=== PATIENT | male | born 1955 | race Hispanic/Latino ===

== ENCOUNTER 2020-08-03 15:17 | Inpatient (IN) | payer MEDICARE ==
[~2020-08-03] VITALS: Ht 172.7 cm; Wt 108.9 kg
[2020-08-03] MEDS ORDERED: ZOSYN 3.375GM+NS 50ML 50 ML IV ONE (16:09)
[2020-08-03] MEDS ORDERED: 0.9%NACL 1000ML 1,000 ML IV ONE (16:09)
[2020-08-03] MEDS ORDERED: 0.9% NACL 500ML IV.SOLN 500 ML IV ONE (16:10)
[2020-08-03 16:46] LABS: BASOPHILS % (AUTO) 0.1 % (0.0-5.0); HEMATOCRIT 42.7 % (42-54); LYMPHOCYTES % (AUTO) 13.2 % (21.0-51.0); MEAN CORPUSCULAR HEMOGLOBIN 28.2 pg (27.0-33.0); MEAN CORPUSCULAR VOLUME 82.9 fL (79-99); MONOCYTES % (AUTO) 4.6 % (3.0-13.0); NEUTROPHILS % (AUTO) 81.4 % (40.0-77.0); PLATELET COUNT (AUTO) 312 K/uL (130-400); RED BLOOD CELL COUNT(AUTO) 5.15 MIL/uL (4.50-6.20); RED CELL DISTRIBUTION WIDTH 13.2 % (11.0-15.5)
[2020-08-03 16:58] LABS: CREATININE 1.2 mg/dL (0.5-1.5); POTASSIUM 4.9 mmol/L (3.5-5.1)
[2020-08-03 17:03] LABS: ALBUMIN 2.9 g/dL (3.5-5.0); BILIRUBIN,TOTAL 0.8 mg/dL (0.2-1.0)
[2020-08-03] MEDS ORDERED: 0.9%NACL 1000ML 1,000 ML IV SCH (17:15)
[2020-08-04] MEDS: HYDROXYZINE 25 MG TABLET PO SCH
[2020-08-04] MEDS ORDERED: ONDANSETRON 4MG INJ IV PRN (00:45)
[2020-08-04] MEDS ORDERED: ACETAMINOPHEN 325 MG TAB PO PRN ×2 (00:45)
[2020-08-04] MEDS ORDERED: GLUCAGON 1MG KIT 1 MG ML IM PRN (00:45)
[2020-08-04] MEDS ORDERED: DOXYCYCLINE 100MG+NS 250ML IV SCH (00:45)
[2020-08-04] MEDS ORDERED: CEFTRIAXONE 1G VIAL IVP SCH (00:45)
[2020-08-04] MEDS ORDERED: ALBUTEROL INHALER 90MCG/INH IH PRN (00:45)
[2020-08-04] MEDS ORDERED: ERGOCALCIFEROL (VITAMIN D2) 50,000 UNIT CAPSULE PO ONE (00:45)
[2020-08-04] MEDS ORDERED: DEXTROSE 50%-WATER 50 ML DISP.SYRIN IV PRN (00:45)
[2020-08-04] MEDS ORDERED: GUAIFENESIN-DM 200/20 MG 10 ML PO PRN (00:45)
[2020-08-04] MEDS ORDERED: DEXAMETHASONE SOD PHOSPHATE 4 MG/ML 1ML VIAL IVP SCH (00:45)
[2020-08-04] MEDS ORDERED: ERGOCALCIFEROL (VITAMIN D2) 50,000 UNIT CAPSULE ONE (01:20)
[2020-08-04] MEDS ORDERED: DEXAMETHASONE SOD PHOSPHATE 4 MG/ML 1ML VIAL ONE (01:21)
[2020-08-04] MEDS ORDERED: HYDROXYZINE 25 MG TABLET ONE (01:21)
[2020-08-04] MEDS ORDERED: DOXYCYCLINE 100MG+NS 250ML 250 ML IV ONE ×2 (01:24→17:07)
[2020-08-04] MEDS ORDERED: CEFTRIAXONE 1G VIAL ONE ×2 (01:31→17:07)
[2020-08-04 04:53] LABS: BASOPHILS % (AUTO) 0.1 % (0.0-5.0); HEMATOCRIT 41.7 % (42-54); MEAN CORPUSCULAR HEMOGLOBIN 27.7 pg (27.0-33.0); MEAN CORPUSCULAR HGB CONC 33.1 g/dL (32.0-36.0); MEAN CORPUSCULAR VOLUME 83.6 fL (79-99); MONOCYTES % (AUTO) 2.3 % (3.0-13.0); NEUTROPHILS % (AUTO) 88.4 % (40.0-77.0); PLATELET COUNT (AUTO) 282 K/uL (130-400); RED BLOOD CELL COUNT(AUTO) 4.99 MIL/uL (4.50-6.20); RED CELL DISTRIBUTION WIDTH 13.2 % (11.0-15.5)
[2020-08-04] MEDS ORDERED: ACETYLCYSTEINE 600 MG CAPSULE ONE ×3 (07:58→21:09)
[2020-08-04] MEDS ORDERED: ASCORBIC ACID 500 MG TAB ONE ×2 (07:58→20:50)
[2020-08-04] MEDS ORDERED: ENOXAPARIN SODIUM 40 MG/0.4 ML SYRINGE SQ ONE (07:59)
[2020-08-04] MEDS ORDERED: ZINC SULFATE 220 CAPSULE ONE (07:59)
[2020-08-04] MEDS ORDERED: ENOXAPARIN SODIUM 40 MG/0.4 ML SYRINGE SQ SCH ×2 (09:00→21:00)
[2020-08-04] MEDS ORDERED: ACETYLCYSTEINE 600 MG CAPSULE PO SCH (09:00)
[2020-08-04] MEDS ORDERED: ASCORBIC ACID 500 MG TAB PO SCH (09:00)
[2020-08-04 09:21] LABS: CREATININE 1.2 mg/dL (0.5-1.5); POTASSIUM 4.4 mmol/L (3.5-5.1)
[2020-08-04 10:05] LABS: ALBUMIN 2.6 g/dL (3.5-5.0); BILIRUBIN,TOTAL 0.5 mg/dL (0.2-1.0); TOTAL PROTEIN, SERUM 7.5 g/dL (6.0-8.3)
[2020-08-04 10:09] LABS: FERRITIN 2078 ng/mL (30-400)
[2020-08-04 10:14] LABS: CRP QUANTITATIVE 297.8 mg/L (0.00-9.0)
[2020-08-04] MEDS ORDERED: PHARMACY COMMUNICATION MISC SCH (10:45)
[2020-08-04 12:43] LABS: ABG BASE EXCESS -3.2 mmol/L (-2.0-3.0); ABG HCO3 21.6 mmol/L (21.0-28.0); ABG OXYGEN SATURATION 93.9 % (95.0-99.0); ABG PCO2 38 mmHg (35-48)
[2020-08-04] MEDS ORDERED: DEXAMETHASONE SOD PHOSPHATE 10MG/ML 1ML VIAL ONE (13:01)
[2020-08-04] MEDS ORDERED: DOXYCYCLINE 100MG+NS 250ML 250 ML IV SCH (14:00)
[2020-08-04] MEDS ORDERED: COMPOUND IV REFRIGERATED 1 EACH IVSOLN MISC PRN (15:00)
[2020-08-04] MEDS ORDERED: REMDESIVIR (EUA) 520 200 MG in 0.9% NACL 250ML 250 ML IV ONE (15:00)
[2020-08-04] MEDS: INSULIN HUMULIN R 100 UNIT/ML 3ML SQ SCH ×2 (16:30→21:00)
[2020-08-04] MEDS ORDERED: INSULIN HUMULIN R 100 UNIT/ML 3ML ONE ×2 (17:09→21:01)
[2020-08-04] MEDS ORDERED: FAMOTIDINE 20MG VIAL IV SCH (21:00)
[2020-08-04] MEDS ORDERED: ENOXAPARIN SODIUM 120 MG/0.8ML SQ SCH (21:00)
[2020-08-05] MEDS ORDERED: DEXAMETHASONE SOD PHOSPHATE 10MG/ML 1ML VIAL ONE ×2 (00:16→12:18)
[2020-08-05] MEDS ORDERED: CEFTRIAXONE 1G VIAL ONE ×3 (00:17→23:47)
[2020-08-05] MEDS ORDERED: DOXYCYCLINE 100MG+NS 250ML 250 ML IV ONE ×2 (00:17→14:20)
[2020-08-05] MEDS ORDERED: 0.9%NACL 50ML 50 ML IV ONE (00:17)
[2020-08-05 03:58] LABS: BASOPHILS % (AUTO) 0.1 % (0.0-5.0); HEMATOCRIT 41.9 % (42-54); LYMPHOCYTES % (AUTO) 8.4 % (21.0-51.0); MEAN CORPUSCULAR HEMOGLOBIN 27.7 pg (27.0-33.0); MEAN CORPUSCULAR HGB CONC 32.7 g/dL (32.0-36.0); MEAN CORPUSCULAR VOLUME 84.8 fL (79-99); MONOCYTES % (AUTO) 3.1 % (3.0-13.0); NEUTROPHILS % (AUTO) 87.5 % (40.0-77.0); PLATELET COUNT (AUTO) 319 K/uL (130-400); RED BLOOD CELL COUNT(AUTO) 4.94 MIL/uL (4.50-6.20); RED CELL DISTRIBUTION WIDTH 13.6 % (11.0-15.5); WHITE BLOOD COUNT (AUTO) 9.6 K/uL (4.8-10.8)
[2020-08-05 04:12] LABS: ABG BASE EXCESS -1.9 mmol/L (-2.0-3.0); ABG HCO3 22.7 mmol/L (21.0-28.0); ABG OXYGEN SATURATION 90.3 % (95.0-99.0); ABG PCO2 39 mmHg (35-48)
[2020-08-05 04:14] LABS: ALBUMIN 2.5 g/dL (3.5-5.0); BILIRUBIN,TOTAL 0.4 mg/dL (0.2-1.0); CREATININE 0.9 mg/dL (0.5-1.5); POTASSIUM 4.5 mmol/L (3.5-5.1); TOTAL PROTEIN, SERUM 6.8 g/dL (6.0-8.3)
[2020-08-05 04:23] LABS: CRP QUANTITATIVE 252.9 mg/L (0.00-9.0)
[2020-08-05] MEDS: INSULIN HUMULIN R 100 UNIT/ML 3ML SQ SCH ×4 (07:30→21:00)
[2020-08-05] MEDS: ZINC SULFATE 220 CAPSULE PO SCH (09:00)
[2020-08-05] MEDS ORDERED: ASCORBIC ACID 500 MG TAB ONE ×2 (09:07→23:47)
[2020-08-05] MEDS ORDERED: ENOXAPARIN SODIUM 120 MG/0.8ML SQ ONE (09:08)
[2020-08-05] MEDS ORDERED: ZINC SULFATE 220 CAPSULE ONE (09:08)
[2020-08-05] MEDS ORDERED: FAMOTIDINE 20MG VIAL IV ONE (09:09)
[2020-08-05] MEDS ORDERED: INSULIN HUMULIN R 100 UNIT/ML 3ML ONE ×5 (09:10→23:48)
[2020-08-05] MEDS: DEXAMETHASONE SOD PHOSPHATE 4 MG/ML 1ML VIAL IVP SCH (12:45)
[2020-08-05] MEDS ORDERED: INSULIN GLARGINE 100 UNITS/ML 10 ML VIAL SQ SCH (21:00)
[2020-08-05] MEDS: ASCORBIC ACID 500 MG TAB PO SCH (21:00)
[2020-08-05] MEDS ORDERED: DEXAMETHASONE SOD PHOSPHATE 4 MG/ML 1ML VIAL ONE (23:47)
[2020-08-05] MEDS ORDERED: HYDROXYZINE 25 MG TABLET ONE (23:47)
[2020-08-06] MEDS: DEXAMETHASONE SOD PHOSPHATE 4 MG/ML 1ML VIAL IVP SCH ×2 (00:45→12:45)
[2020-08-06] MEDS ORDERED: DOXYCYCLINE 100MG+NS 250ML 250 ML IV ONE ×2 (01:52→13:08)
[2020-08-06 06:02] LABS: BASOPHILS % (AUTO) 0.1 % (0.0-5.0); HEMATOCRIT 41.3 % (42-54); MEAN CORPUSCULAR HEMOGLOBIN 27.9 pg (27.0-33.0); MEAN CORPUSCULAR HGB CONC 33.2 g/dL (32.0-36.0); MEAN CORPUSCULAR VOLUME 84.1 fL (79-99); MONOCYTES % (AUTO) 4.2 % (3.0-13.0); NEUTROPHILS % (AUTO) 87.5 % (40.0-77.0); PLATELET COUNT (AUTO) 357 K/uL (130-400); RED BLOOD CELL COUNT(AUTO) 4.91 MIL/uL (4.50-6.20); RED CELL DISTRIBUTION WIDTH 13.4 % (11.0-15.5); WHITE BLOOD COUNT (AUTO) 8.8 K/uL (4.8-10.8)
[2020-08-06 06:28] LABS: ALBUMIN 2.2 g/dL (3.5-5.0); BILIRUBIN,TOTAL 0.3 mg/dL (0.2-1.0); CREATININE 0.9 mg/dL (0.5-1.5); CRP QUANTITATIVE 101.7 mg/L (0.00-9.0); POTASSIUM 4.3 mmol/L (3.5-5.1); TOTAL PROTEIN, SERUM 6.9 g/dL (6.0-8.3)
[2020-08-06] MEDS ORDERED: INSULIN HUMULIN R 100 UNIT/ML 3ML SQ SCH (07:30)
[2020-08-06] MEDS: INSULIN HUMULIN R 100 UNIT/ML 3ML SQ SCH ×6 (07:30→21:00)
[2020-08-06] MEDS ORDERED: ASCORBIC ACID 500 MG TAB ONE (08:07)
[2020-08-06] MEDS ORDERED: ZINC SULFATE 220 CAPSULE ONE (08:07)
[2020-08-06] MEDS ORDERED: ENOXAPARIN SODIUM 120 MG/0.8ML SQ ONE (08:08)
[2020-08-06] MEDS ORDERED: INSULIN HUMULIN R 100 UNIT/ML 3ML ONE ×4 (08:09→21:28)
[2020-08-06] MEDS ORDERED: FAMOTIDINE 20MG VIAL IV ONE ×2 (08:09→21:18)
[2020-08-06] MEDS: ASCORBIC ACID 500 MG TAB PO SCH ×2 (09:00→21:00)
[2020-08-06] MEDS: ZINC SULFATE 220 CAPSULE PO SCH (09:00)
[2020-08-06] MEDS ORDERED: DEXAMETHASONE SOD PHOSPHATE 10MG/ML 1ML VIAL ONE (11:36)
[2020-08-06] MEDS ORDERED: CEFTRIAXONE 1G VIAL ONE (11:37)
[2020-08-06] MEDS: INSULIN GLARGINE 100 UNITS/ML 10 ML VIAL SQ SCH (21:00)
[2020-08-06] MEDS: ENOXAPARIN SODIUM 60 MG/0.6 ML SQ SCH (21:00)
[2020-08-06] MEDS ORDERED: ENOXAPARIN SODIUM 60 MG/0.6 ML SQ ONE (21:17)
[2020-08-07] VITALS (24 sets, daily range): BP systolic 119–167; BP diastolic 63–101
[2020-08-07] MEDS: INSULIN GLARGINE 100 UNITS/ML 10 ML VIAL SQ SCH ×2 (00:02→20:42)
[2020-08-07] MEDS: HYDROXYZINE 25 MG TABLET PO SCH ×2 (00:45)
[2020-08-07] MEDS: DEXAMETHASONE SOD PHOSPHATE 4 MG/ML 1ML VIAL IVP SCH ×3 (02:25→13:19)
[2020-08-07 04:34] LABS: ALBUMIN 2.3 g/dL (3.5-5.0); BILIRUBIN,TOTAL 0.3 mg/dL (0.2-1.0); CRP QUANTITATIVE 61.8 mg/L (0.00-9.0); POTASSIUM 3.8 mmol/L (3.5-5.1)
[2020-08-07] MEDS: PHARMACY COMMUNICATION MISC SCH ×2 (06:00)
[2020-08-07] MEDS: PANTOPRAZOLE 40 MG TAB DR PO SCH (09:16)
[2020-08-07] MEDS: ASCORBIC ACID 500 MG TAB PO SCH ×3 (09:16→21:27)
[2020-08-07] MEDS: ZINC SULFATE 220 CAPSULE PO SCH ×2 (09:16)
[2020-08-07] MEDS: ENOXAPARIN SODIUM 60 MG/0.6 ML SQ SCH ×2 (09:17→20:43)
[2020-08-07] MEDS: INSULIN HUMULIN R 100 UNIT/ML 3ML SQ SCH ×7 (09:53→20:46)
[2020-08-07] MEDS: REMDESIVIR (EUA) 520 100 MG in 0.9% NACL 250ML 250 ML IV SCH ×3 (16:30)
[2020-08-07] MEDS ORDERED: HYDRALAZINE 20MG/ML VIAL IV ONE (18:30)
[2020-08-08] VITALS (25 sets, daily range): BP systolic 109–162; BP diastolic 59–95
[2020-08-08] MEDS: HYDROXYZINE 25 MG TABLET PO SCH (00:01)
[2020-08-08] MEDS: DEXAMETHASONE SOD PHOSPHATE 4 MG/ML 1ML VIAL IVP SCH ×2 (00:01→12:40)
[2020-08-08] MEDS: INSULIN HUMULIN R 100 UNIT/ML 3ML SQ SCH ×4 (05:23→21:01)
[2020-08-08] MEDS: PHARMACY COMMUNICATION MISC SCH (06:00)
[2020-08-08 06:42] LABS: MAGNESIUM 2.3 mg/dL (1.80-2.40)
[2020-08-08 07:33] LABS: HEMATOCRIT 41.9 % (42-54); MEAN CORPUSCULAR HEMOGLOBIN 27.6 pg (27.0-33.0); MEAN CORPUSCULAR VOLUME 86.4 fL (79-99); RED BLOOD CELL COUNT(AUTO) 4.85 MIL/uL (4.50-6.20)
[2020-08-08] MEDS ORDERED: POTASSIUM CHLORIDE 20MEQ/100ML 100 ML IV PRN (07:45)
[2020-08-08] MEDS ORDERED: LIDOCAINE HCL-MPF 1% 2ML VIAL IV PRN (07:45)
[2020-08-08] MEDS ORDERED: POTASSIUM CHLORIDE 10% ELIXIR 20 MEQ/15 ML UDCUP PO PRN (07:45)
[2020-08-08 07:47] LABS: ALBUMIN 2.2 g/dL (3.5-5.0); BILIRUBIN,TOTAL 0.3 mg/dL (0.2-1.0); CREATININE 0.9 mg/dL (0.5-1.5); POTASSIUM 4.8 mmol/L (3.5-5.1)
[2020-08-08] MEDS: ENOXAPARIN SODIUM 60 MG/0.6 ML SQ SCH ×2 (08:46→20:59)
[2020-08-08] MEDS: PANTOPRAZOLE 40 MG TAB DR PO SCH (08:46)
[2020-08-08] MEDS: ZINC SULFATE 220 CAPSULE PO SCH (08:46)
[2020-08-08] MEDS: ASCORBIC ACID 500 MG TAB PO SCH ×2 (08:46→20:59)
[2020-08-08] MEDS: REMDESIVIR (EUA) 520 100 MG in 0.9% NACL 250ML 250 ML IV SCH (16:02)
[2020-08-08] MEDS: INSULIN GLARGINE 100 UNITS/ML 10 ML VIAL SQ SCH (21:02)
[2020-08-09] VITALS (24 sets, daily range): BP systolic 109–161; BP diastolic 64–95
[2020-08-09] MEDS: HYDROXYZINE 25 MG TABLET PO SCH (00:45)
[2020-08-09] MEDS: INSULIN HUMULIN R 100 UNIT/ML 3ML SQ SCH ×4 (06:01→20:24)
[2020-08-09] MEDS: SENNOSIDES 8.6 MG TABLET PO SCH (08:40)
[2020-08-09] MEDS: ZINC SULFATE 220 CAPSULE PO SCH (08:40)
[2020-08-09] MEDS: PANTOPRAZOLE 40 MG TAB DR PO SCH (08:40)
[2020-08-09] MEDS: ASCORBIC ACID 500 MG TAB PO SCH ×2 (08:40→20:21)
[2020-08-09] MEDS: DOCUSATE SODIUM 100 MG CAP PO SCH (08:40)
[2020-08-09] MEDS: ENOXAPARIN SODIUM 60 MG/0.6 ML SQ SCH ×2 (08:42→20:21)
[2020-08-09] MEDS: DEXAMETHASONE SOD PHOSPHATE 4 MG/ML 1ML VIAL IVP SCH (08:42)
[2020-08-09] MEDS: INSULIN GLARGINE 100 UNITS/ML 10 ML VIAL SQ SCH (20:24)
[2020-08-10] VITALS (17 sets, daily range): BP systolic 113–142; BP diastolic 69–84
[2020-08-10] MEDS: HYDROXYZINE 25 MG TABLET PO SCH ×2 (00:45→23:59)
[2020-08-10 04:14] LABS: BASOPHILS % (AUTO) 0.1 % (0.0-5.0); EOSINOPHILS % (AUTO) 0.6 % (0.0-8.0); HEMATOCRIT 44.2 % (42-54); LYMPHOCYTES % (AUTO) 11.6 % (21.0-51.0); MEAN CORPUSCULAR HEMOGLOBIN 27.4 pg (27.0-33.0); MEAN CORPUSCULAR HGB CONC 32.1 g/dL (32.0-36.0); MEAN CORPUSCULAR VOLUME 85.3 fL (79-99); MONOCYTES % (AUTO) 2.4 % (3.0-13.0); NEUTROPHILS % (AUTO) 83.2 % (40.0-77.0); PLATELET COUNT (AUTO) 324 K/uL (130-400); RED BLOOD CELL COUNT(AUTO) 5.18 MIL/uL (4.50-6.20); RED CELL DISTRIBUTION WIDTH 13.8 % (11.0-15.5); WHITE BLOOD COUNT (AUTO) 8.3 K/uL (4.8-10.8)
[2020-08-10 04:44] LABS: ALBUMIN 2.2 g/dL (3.5-5.0); BILIRUBIN,TOTAL 0.5 mg/dL (0.2-1.0); CREATININE 0.8 mg/dL (0.5-1.5); MAGNESIUM 2.6 mg/dL (1.80-2.40); TOTAL PROTEIN, SERUM 6.7 g/dL (6.0-8.3)
[2020-08-10] MEDS: INSULIN HUMULIN R 100 UNIT/ML 3ML SQ SCH ×4 (05:22→20:31)
[2020-08-10] MEDS: DEXAMETHASONE SOD PHOSPHATE 4 MG/ML 1ML VIAL IVP SCH (09:07)
[2020-08-10] MEDS: ENOXAPARIN SODIUM 60 MG/0.6 ML SQ SCH ×2 (09:07→20:29)
[2020-08-10] MEDS: ZINC SULFATE 220 CAPSULE PO SCH (09:07)
[2020-08-10] MEDS: DOCUSATE SODIUM 100 MG CAP PO SCH (09:07)
[2020-08-10] MEDS: PANTOPRAZOLE 40 MG TAB DR PO SCH (09:08)
[2020-08-10] MEDS: ASCORBIC ACID 500 MG TAB PO SCH ×2 (09:08→20:29)
[2020-08-10] MEDS: SENNOSIDES 8.6 MG TABLET PO SCH (09:08)
[2020-08-10] MEDS: INSULIN GLARGINE 100 UNITS/ML 10 ML VIAL SQ SCH (20:31)
[2020-08-11] VITALS (18 sets, daily range): BP systolic 115–156; BP diastolic 65–93
[2020-08-11 04:13] LABS: BASOPHILS % (AUTO) 0.1 % (0.0-5.0); EOSINOPHILS % (AUTO) 0.1 % (0.0-8.0); HEMATOCRIT 43.7 % (42-54); LYMPHOCYTES % (AUTO) 8.4 % (21.0-51.0); MEAN CORPUSCULAR HEMOGLOBIN 27.5 pg (27.0-33.0); MEAN CORPUSCULAR VOLUME 85.9 fL (79-99); MONOCYTES % (AUTO) 2.5 % (3.0-13.0); NEUTROPHILS % (AUTO) 87.1 % (40.0-77.0); PLATELET COUNT (AUTO) 302 K/uL (130-400); RED BLOOD CELL COUNT(AUTO) 5.09 MIL/uL (4.50-6.20); RED CELL DISTRIBUTION WIDTH 13.5 % (11.0-15.5); WHITE BLOOD COUNT (AUTO) 8.3 K/uL (4.8-10.8)
[2020-08-11 04:22] LABS: ALBUMIN 2.1 g/dL (3.5-5.0); BILIRUBIN,TOTAL 0.5 mg/dL (0.2-1.0); CREATININE 0.8 mg/dL (0.5-1.5); POTASSIUM 4.1 mmol/L (3.5-5.1); TOTAL PROTEIN, SERUM 6.6 g/dL (6.0-8.3)
[2020-08-11 04:38] LABS: CRP QUANTITATIVE 211.1 mg/L (0.00-9.0)
[2020-08-11] MEDS: INSULIN HUMULIN R 100 UNIT/ML 3ML SQ SCH ×4 (06:08→20:29)
[2020-08-11] MEDS: DEXAMETHASONE SOD PHOSPHATE 4 MG/ML 1ML VIAL IVP SCH (09:54)
[2020-08-11] MEDS: ZINC SULFATE 220 CAPSULE PO SCH (09:55)
[2020-08-11] MEDS: DOCUSATE SODIUM 100 MG CAP PO SCH (09:57)
[2020-08-11] MEDS: SENNOSIDES 8.6 MG TABLET PO SCH (09:57)
[2020-08-11] MEDS: ASCORBIC ACID 500 MG TAB PO SCH ×2 (09:57→20:25)
[2020-08-11] MEDS: PANTOPRAZOLE 40 MG TAB DR PO SCH (09:57)
[2020-08-11] MEDS: ENOXAPARIN SODIUM 60 MG/0.6 ML SQ SCH ×2 (09:58→20:25)
[2020-08-11] MEDS: INSULIN GLARGINE 100 UNITS/ML 10 ML VIAL SQ SCH (20:27)
[2020-08-12] VITALS (18 sets, daily range): BP systolic 77–139; BP diastolic 35–86
[2020-08-12] MEDS: HYDROXYZINE 25 MG TABLET PO SCH ×2 (00:07→20:41)
[2020-08-12] MEDS: INSULIN HUMULIN R 100 UNIT/ML 3ML SQ SCH ×4 (05:45→20:40)
[2020-08-12 06:02] LABS: BASOPHILS % (AUTO) 0.1 % (0.0-5.0); EOSINOPHILS % (AUTO) 0.1 % (0.0-8.0); MEAN CORPUSCULAR HEMOGLOBIN 27.3 pg (27.0-33.0); MEAN CORPUSCULAR VOLUME 85.3 fL (79-99); MONOCYTES % (AUTO) 3.6 % (3.0-13.0); NEUTROPHILS % (AUTO) 84.8 % (40.0-77.0); PLATELET COUNT (AUTO) 294 K/uL (130-400); RED BLOOD CELL COUNT(AUTO) 5.16 MIL/uL (4.50-6.20); RED CELL DISTRIBUTION WIDTH 13.6 % (11.0-15.5)
[2020-08-12 06:22] LABS: ALBUMIN 2.1 g/dL (3.5-5.0); BILIRUBIN,TOTAL 0.5 mg/dL (0.2-1.0); CREATININE 0.8 mg/dL (0.5-1.5); CRP QUANTITATIVE 127.4 mg/L (0.00-9.0); TOTAL PROTEIN, SERUM 6.7 g/dL (6.0-8.3)
[2020-08-12] MEDS: ENOXAPARIN SODIUM 60 MG/0.6 ML SQ SCH ×2 (10:11→20:38)
[2020-08-12] MEDS: DEXAMETHASONE SOD PHOSPHATE 4 MG/ML 1ML VIAL IVP SCH ×2 (10:12→20:37)
[2020-08-12] MEDS: ZINC SULFATE 220 CAPSULE PO SCH (10:12)
[2020-08-12] MEDS: ASCORBIC ACID 500 MG TAB PO SCH ×2 (10:12→20:37)
[2020-08-12] MEDS: DOCUSATE SODIUM 100 MG CAP PO SCH (10:12)
[2020-08-12] MEDS: PANTOPRAZOLE 40 MG TAB DR PO SCH (10:12)
[2020-08-12] MEDS: SENNOSIDES 8.6 MG TABLET PO SCH (10:12)
[2020-08-12] MEDS: FUROSEMIDE 20MG VIAL IV SCH (18:00)
[2020-08-12] MEDS ORDERED: ALBUMIN (HUMAN) 25% 50 ML IV SCH (19:00)
[2020-08-12] MEDS: INSULIN GLARGINE 100 UNITS/ML 10 ML VIAL SQ SCH (20:39)
[2020-08-13] VITALS (9 sets, daily range): BP systolic 116–126; BP diastolic 55–77
[2020-08-13] MEDS: FUROSEMIDE 20MG VIAL IV SCH ×4 (00:58→22:54)
[2020-08-13 06:15] LABS: BASOPHILS % (AUTO) 0.1 % (0.0-5.0); HEMATOCRIT 45.6 % (42-54); LYMPHOCYTES % (AUTO) 7.5 % (21.0-51.0); MEAN CORPUSCULAR HEMOGLOBIN 27.2 pg (27.0-33.0); MEAN CORPUSCULAR VOLUME 85.1 fL (79-99); MONOCYTES % (AUTO) 2.8 % (3.0-13.0); NEUTROPHILS % (AUTO) 88.3 % (40.0-77.0); PLATELET COUNT (AUTO) 258 K/uL (130-400); RED BLOOD CELL COUNT(AUTO) 5.36 MIL/uL (4.50-6.20); RED CELL DISTRIBUTION WIDTH 13.3 % (11.0-15.5); WHITE BLOOD COUNT (AUTO) 8.3 K/uL (4.8-10.8)
[2020-08-13 06:40] LABS: ALBUMIN 2.2 g/dL (3.5-5.0); BILIRUBIN,TOTAL 0.4 mg/dL (0.2-1.0); CREATININE 0.8 mg/dL (0.5-1.5); CRP QUANTITATIVE 68.7 mg/L (0.00-9.0); MAGNESIUM 2.1 mg/dL (1.80-2.40); PHOSPHORUS 4.2 mg/dL (2.5-4.9); POTASSIUM 4.4 mmol/L (3.5-5.1); THYROID STIMULATING HORMONE 0.83 uIU/mL (0.36-3.74)
[2020-08-13] MEDS: INSULIN HUMULIN R 100 UNIT/ML 3ML SQ SCH ×4 (06:54→22:52)
[2020-08-13] MEDS: ZINC SULFATE 220 CAPSULE PO SCH (08:50)
[2020-08-13] MEDS: DOCUSATE SODIUM 100 MG CAP PO SCH (08:50)
[2020-08-13] MEDS: ASCORBIC ACID 500 MG TAB PO SCH ×2 (08:50→20:37)
[2020-08-13] MEDS: PANTOPRAZOLE 40 MG TAB DR PO SCH (08:50)
[2020-08-13] MEDS: SENNOSIDES 8.6 MG TABLET PO SCH (08:50)
[2020-08-13] MEDS: ENOXAPARIN SODIUM 60 MG/0.6 ML SQ SCH ×2 (08:51→20:41)
[2020-08-13] MEDS: DEXAMETHASONE SOD PHOSPHATE 4 MG/ML 1ML VIAL IVP SCH ×3 (09:03→20:37)
[2020-08-13] MEDS: INSULIN GLARGINE 100 UNITS/ML 10 ML VIAL SQ SCH ×2 (12:55→22:48)
[2020-08-13] MEDS: HYDROXYZINE 25 MG TABLET PO SCH (23:05)
[2020-08-14] VITALS (13 sets, daily range): BP systolic 106–150; BP diastolic 62–83
[2020-08-14] MEDS: FUROSEMIDE 20MG VIAL IV SCH ×3 (07:30→23:30)
[2020-08-14] MEDS: INSULIN HUMULIN R 100 UNIT/ML 3ML SQ SCH ×4 (07:30→21:08)
[2020-08-14] MEDS: SENNOSIDES 8.6 MG TABLET PO SCH (09:00)
[2020-08-14] MEDS: DOCUSATE SODIUM 100 MG CAP PO SCH (09:00)
[2020-08-14] MEDS: DEXAMETHASONE SOD PHOSPHATE 4 MG/ML 1ML VIAL IVP SCH ×3 (15:22→21:09)
[2020-08-14] MEDS: ASCORBIC ACID 500 MG TAB PO SCH ×2 (15:22→21:08)
[2020-08-14] MEDS: ENOXAPARIN SODIUM 60 MG/0.6 ML SQ SCH ×2 (15:22→21:09)
[2020-08-14] MEDS: ZINC SULFATE 220 CAPSULE PO SCH (15:23)
[2020-08-14] MEDS: INSULIN GLARGINE 100 UNITS/ML 10 ML VIAL SQ SCH ×2 (15:26→21:06)
[2020-08-14] MEDS: PANTOPRAZOLE 40 MG TAB DR PO SCH (15:28)
[2020-08-15] VITALS (34 sets, daily range): BP systolic 102–150; BP diastolic 41–89
[2020-08-15] MEDS: HYDROXYZINE 25 MG TABLET PO SCH (00:01)
[2020-08-15 03:36] LABS: ABG BASE EXCESS 6.7 mmol/L (-2.0-3.0); ABG HCO3 32.2 mmol/L (21.0-28.0); ABG PCO2 49 mmHg (35-48)
[2020-08-15 04:23] LABS: BASOPHILS % (AUTO) 0.1 % (0.0-5.0); HEMATOCRIT 47.9 % (42-54); LYMPHOCYTES % (AUTO) 6.4 % (21.0-51.0); MEAN CORPUSCULAR HEMOGLOBIN 27.3 pg (27.0-33.0); MEAN CORPUSCULAR HGB CONC 31.7 g/dL (32.0-36.0); MEAN CORPUSCULAR VOLUME 86.2 fL (79-99); MONOCYTES % (AUTO) 2.8 % (3.0-13.0); NEUTROPHILS % (AUTO) 90.1 % (40.0-77.0); PLATELET COUNT (AUTO) 241 K/uL (130-400); RED BLOOD CELL COUNT(AUTO) 5.56 MIL/uL (4.50-6.20); RED CELL DISTRIBUTION WIDTH 13.3 % (11.0-15.5); WHITE BLOOD COUNT (AUTO) 9.8 K/uL (4.8-10.8)
[2020-08-15 04:54] LABS: ALANINE AMINOTRANSFERASE 141 U/L (12-78); ALBUMIN 2.5 g/dL (3.5-5.0); ASPARTATE AMINOTRANSFERASE 48 U/L (10-37); B-TYPE NATRIURETIC PEPTIDE 8 pg/mL (0-100); BILIRUBIN,TOTAL 0.5 mg/dL (0.2-1.0); CARBON DIOXIDE 35 mmol/L (21-32); CHLORIDE 97 mmol/L (101-111); GLOMERULAR FILTR. RATE CALC 80 mL/min (>60); GLUCOSE,RANDOM 264 mg/dL (70-105); POTASSIUM 4.8 mmol/L (3.5-5.1); SODIUM SERUM 136 mmol/L (136-145); UREA NITROGEN, BLOOD 28 mg/dL (7-18)
[2020-08-15] MEDS: INSULIN HUMULIN R 100 UNIT/ML 3ML SQ SCH ×3 (06:06→18:15)
[2020-08-15] MEDS: DEXAMETHASONE SOD PHOSPHATE 4 MG/ML 1ML VIAL IVP SCH ×3 (09:12→20:58)
[2020-08-15] MEDS: PANTOPRAZOLE 40 MG TAB DR PO SCH (09:12)
[2020-08-15] MEDS: DOCUSATE SODIUM 100 MG CAP PO SCH (09:12)
[2020-08-15] MEDS: SENNOSIDES 8.6 MG TABLET PO SCH (09:12)
[2020-08-15] MEDS: ENOXAPARIN SODIUM 60 MG/0.6 ML SQ SCH ×2 (09:13→20:58)
[2020-08-15] MEDS: ZINC SULFATE 220 CAPSULE PO SCH (09:13)
[2020-08-15] MEDS: ASCORBIC ACID 500 MG TAB PO SCH ×2 (09:13→20:58)
[2020-08-15] MEDS: INSULIN GLARGINE 100 UNITS/ML 10 ML VIAL SQ SCH ×2 (09:14→21:00)
[2020-08-15] MEDS ORDERED: INSULIN HUMULIN R 100 UNIT/ML 3ML SQ SCH (21:00)
[2020-08-16] VITALS (19 sets, daily range): BP systolic 100–147; BP diastolic 51–93
[2020-08-16] MEDS: HYDROXYZINE 25 MG TABLET PO SCH (00:45)
[2020-08-16 04:03] LABS: ABG BASE EXCESS 5.8 mmol/L (-2.0-3.0); ABG HCO3 31.2 mmol/L (21.0-28.0); ABG OXYGEN SATURATION 92.6 % (95.0-99.0); ABG PCO2 47 mmHg (35-48)
[2020-08-16 05:17] LABS: BASOPHILS % (AUTO) 0.1 % (0.0-5.0); HEMATOCRIT 46.4 % (42-54); LYMPHOCYTES % (AUTO) 6.4 % (21.0-51.0); MEAN CORPUSCULAR HEMOGLOBIN 27.4 pg (27.0-33.0); MEAN CORPUSCULAR HGB CONC 32.3 g/dL (32.0-36.0); MEAN CORPUSCULAR VOLUME 84.7 fL (79-99); MONOCYTES % (AUTO) 4.3 % (3.0-13.0); NEUTROPHILS % (AUTO) 88.7 % (40.0-77.0); PLATELET COUNT (AUTO) 217 K/uL (130-400); RED BLOOD CELL COUNT(AUTO) 5.48 MIL/uL (4.50-6.20); WHITE BLOOD COUNT (AUTO) 11.3 K/uL (4.8-10.8)
[2020-08-16 05:21] LABS: HEMOGLOBIN A1C 8.4 % (4.0-6.0)
[2020-08-16 05:49] LABS: ALBUMIN 2.5 g/dL (3.5-5.0); BILIRUBIN,TOTAL 0.4 mg/dL (0.2-1.0); CREATININE 0.8 mg/dL (0.5-1.5); CRP QUANTITATIVE 8.9 mg/L (0.00-9.0); POTASSIUM 4.4 mmol/L (3.5-5.1); TOTAL PROTEIN, SERUM 6.8 g/dL (6.0-8.3)
[2020-08-16] MEDS: INSULIN LISPRO 100 UNIT/ML 3ML SQ SCH ×6 (05:55→18:21)
[2020-08-16] MEDS: INSULIN GLARGINE 100 UNITS/ML 10 ML VIAL SQ SCH ×2 (09:53→21:09)
[2020-08-16] MEDS: ZINC SULFATE 220 CAPSULE PO SCH (09:54)
[2020-08-16] MEDS: ASCORBIC ACID 500 MG TAB PO SCH ×2 (09:54→21:07)
[2020-08-16] MEDS: PANTOPRAZOLE 40 MG TAB DR PO SCH (09:54)
[2020-08-16] MEDS: DEXAMETHASONE SOD PHOSPHATE 4 MG/ML 1ML VIAL IVP SCH ×3 (09:54→21:08)
[2020-08-16] MEDS: DOCUSATE SODIUM 100 MG CAP PO SCH (09:55)
[2020-08-16] MEDS: SENNOSIDES 8.6 MG TABLET PO SCH (09:55)
[2020-08-16] MEDS: ENOXAPARIN SODIUM 60 MG/0.6 ML SQ SCH ×2 (09:56→21:08)
[2020-08-17] VITALS (18 sets, daily range): BP systolic 104–142; BP diastolic 61–80
[2020-08-17] MEDS: HYDROXYZINE 25 MG TABLET PO SCH (00:45)
[2020-08-17 05:01] LABS: BASOPHILS % (AUTO) 0.1 % (0.0-5.0); HEMATOCRIT 43.4 % (42-54); LYMPHOCYTES % (AUTO) 6.8 % (21.0-51.0); MEAN CORPUSCULAR HEMOGLOBIN 27.7 pg (27.0-33.0); MEAN CORPUSCULAR HGB CONC 32.5 g/dL (32.0-36.0); MEAN CORPUSCULAR VOLUME 85.3 fL (79-99); MONOCYTES % (AUTO) 3.8 % (3.0-13.0); NEUTROPHILS % (AUTO) 88.5 % (40.0-77.0); PLATELET COUNT (AUTO) 207 K/uL (130-400); RED BLOOD CELL COUNT(AUTO) 5.09 MIL/uL (4.50-6.20); RED CELL DISTRIBUTION WIDTH 13.2 % (11.0-15.5); WHITE BLOOD COUNT (AUTO) 10.3 K/uL (4.8-10.8)
[2020-08-17 05:26] LABS: ALBUMIN 2.3 g/dL (3.5-5.0); BILIRUBIN,TOTAL 0.4 mg/dL (0.2-1.0); CREATININE 0.8 mg/dL (0.5-1.5); POTASSIUM 4.4 mmol/L (3.5-5.1)
[2020-08-17] MEDS: INSULIN LISPRO 100 UNIT/ML 3ML SQ SCH ×8 (05:56→18:18)
[2020-08-17] MEDS: DEXAMETHASONE SOD PHOSPHATE 4 MG/ML 1ML VIAL IVP SCH ×2 (08:53→22:05)
[2020-08-17] MEDS: PANTOPRAZOLE 40 MG TAB DR PO SCH (08:54)
[2020-08-17] MEDS: ZINC SULFATE 220 CAPSULE PO SCH (08:54)
[2020-08-17] MEDS: ENOXAPARIN SODIUM 60 MG/0.6 ML SQ SCH ×2 (08:54→22:07)
[2020-08-17] MEDS: DOCUSATE SODIUM 100 MG CAP PO SCH (08:54)
[2020-08-17] MEDS: SENNOSIDES 8.6 MG TABLET PO SCH (08:54)
[2020-08-17] MEDS: ASCORBIC ACID 500 MG TAB PO SCH ×2 (08:54→22:04)
[2020-08-17] MEDS: INSULIN GLARGINE 100 UNITS/ML 10 ML VIAL SQ SCH ×2 (08:56→22:06)
[2020-08-18] VITALS (42 sets, daily range): BP systolic 100–129; BP diastolic 58–80
[2020-08-18] MEDS: HYDROXYZINE 25 MG TABLET PO SCH (00:45)
[2020-08-18] MEDS: INSULIN LISPRO 100 UNIT/ML 3ML SQ SCH ×8 (01:08→18:41)
[2020-08-18] MEDS ORDERED: HYDROCODONE/ACETAMINOPHEN 5/325 MG TAB PO PRN (09:00)
[2020-08-18] MEDS: ZINC SULFATE 220 CAPSULE PO SCH (09:11)
[2020-08-18] MEDS: DOCUSATE SODIUM 100 MG CAP PO SCH (09:11)
[2020-08-18] MEDS: ASCORBIC ACID 500 MG TAB PO SCH ×2 (09:11→20:58)
[2020-08-18] MEDS: PANTOPRAZOLE 40 MG TAB DR PO SCH (09:12)
[2020-08-18] MEDS: SENNOSIDES 8.6 MG TABLET PO SCH (09:12)
[2020-08-18] MEDS: ENOXAPARIN SODIUM 60 MG/0.6 ML SQ SCH ×2 (09:13→21:04)
[2020-08-18] MEDS: DEXAMETHASONE SOD PHOSPHATE 4 MG/ML 1ML VIAL IVP SCH (09:14)
[2020-08-18] MEDS: INSULIN GLARGINE 100 UNITS/ML 10 ML VIAL SQ SCH ×2 (09:16→21:00)
[2020-08-18 09:32] LABS: BASOPHILS % (AUTO) 0.1 % (0.0-5.0); EOSINOPHILS % (AUTO) 0.1 % (0.0-8.0); HEMATOCRIT 45.9 % (42-54); LYMPHOCYTES % (AUTO) 7.5 % (21.0-51.0); MEAN CORPUSCULAR HEMOGLOBIN 27.6 pg (27.0-33.0); MEAN CORPUSCULAR HGB CONC 31.6 g/dL (32.0-36.0); MEAN CORPUSCULAR VOLUME 87.3 fL (79-99); NEUTROPHILS % (AUTO) 86.8 % (40.0-77.0); PLATELET COUNT (AUTO) 188 K/uL (130-400); RED BLOOD CELL COUNT(AUTO) 5.26 MIL/uL (4.50-6.20); RED CELL DISTRIBUTION WIDTH 13.4 % (11.0-15.5)
[2020-08-18 09:50] LABS: CREATININE 0.8 mg/dL (0.5-1.5); CRP QUANTITATIVE 9.9 mg/L (0.00-9.0); POTASSIUM 4.3 mmol/L (3.5-5.1)
[2020-08-19] VITALS (44 sets, daily range): BP systolic 92–127; BP diastolic 47–73
[2020-08-19] MEDS: INSULIN LISPRO 100 UNIT/ML 3ML SQ SCH ×8 (00:35→17:54)
[2020-08-19 04:12] LABS: ABG BASE EXCESS 6.3 mmol/L (-2.0-3.0); ABG HCO3 30.8 mmol/L (21.0-28.0); ABG OXYGEN SATURATION 96.3 % (95.0-99.0); ABG PCO2 43 mmHg (35-48)
[2020-08-19 05:30] LABS: ALBUMIN 2.3 g/dL (3.5-5.0); BILIRUBIN,TOTAL 0.5 mg/dL (0.2-1.0); CREATININE 0.7 mg/dL (0.5-1.5); MAGNESIUM 2.1 mg/dL (1.80-2.40); PHOSPHORUS 3.1 mg/dL (2.5-4.9); POTASSIUM 4.1 mmol/L (3.5-5.1); TOTAL PROTEIN, SERUM 5.9 g/dL (6.0-8.3)
[2020-08-19] MEDS: DOCUSATE SODIUM 100 MG CAP PO SCH (09:08)
[2020-08-19] MEDS: PANTOPRAZOLE 40 MG TAB DR PO SCH (09:08)
[2020-08-19] MEDS: SENNOSIDES 8.6 MG TABLET PO SCH (09:08)
[2020-08-19] MEDS: ASCORBIC ACID 500 MG TAB PO SCH ×2 (09:08→20:41)
[2020-08-19] MEDS: ZINC SULFATE 220 CAPSULE PO SCH (09:08)
[2020-08-19] MEDS: ENOXAPARIN SODIUM 60 MG/0.6 ML SQ SCH ×2 (09:09→20:42)
[2020-08-19] MEDS: INSULIN GLARGINE 100 UNITS/ML 10 ML VIAL SQ SCH ×2 (09:11→20:41)
[2020-08-20] VITALS (38 sets, daily range): BP systolic 102–151; BP diastolic 53–87
[2020-08-20 04:37] LABS: BASOPHILS % (AUTO) 0.1 % (0.0-5.0); EOSINOPHILS % (AUTO) 2.2 % (0.0-8.0); HEMATOCRIT 42.3 % (42-54); LYMPHOCYTES % (AUTO) 12.4 % (21.0-51.0); MEAN CORPUSCULAR HEMOGLOBIN 27.9 pg (27.0-33.0); MEAN CORPUSCULAR HGB CONC 32.6 g/dL (32.0-36.0); MEAN CORPUSCULAR VOLUME 85.5 fL (79-99); MONOCYTES % (AUTO) 3.6 % (3.0-13.0); NEUTROPHILS % (AUTO) 80.9 % (40.0-77.0); PLATELET COUNT (AUTO) 166 K/uL (130-400); RED BLOOD CELL COUNT(AUTO) 4.95 MIL/uL (4.50-6.20); RED CELL DISTRIBUTION WIDTH 13.5 % (11.0-15.5); WHITE BLOOD COUNT (AUTO) 8.7 K/uL (4.8-10.8)
[2020-08-20] MEDS: INSULIN LISPRO 100 UNIT/ML 3ML SQ SCH ×10 (06:00→21:21)
[2020-08-20] MEDS: ENOXAPARIN SODIUM 60 MG/0.6 ML SQ SCH ×2 (08:39→20:09)
[2020-08-20] MEDS: ASCORBIC ACID 500 MG TAB PO SCH ×2 (08:39→20:09)
[2020-08-20] MEDS: DOCUSATE SODIUM 100 MG CAP PO SCH (08:40)
[2020-08-20] MEDS: ZINC SULFATE 220 CAPSULE PO SCH (08:40)
[2020-08-20] MEDS: SENNOSIDES 8.6 MG TABLET PO SCH (08:40)
[2020-08-20] MEDS: PANTOPRAZOLE 40 MG TAB DR PO SCH (08:40)
[2020-08-20] MEDS ORDERED: DEXAMETHASONE SOD PHOSPHATE 4 MG/ML 1ML VIAL IV SCH (11:15)
[2020-08-20] MEDS ORDERED: DEXAMETHASONE SOD PHOSPHATE 4 MG/ML 1ML VIAL IM SCH (11:15)
[2020-08-20] MEDS: DEXAMETHASONE SOD PHOSPHATE 4 MG/ML 1ML VIAL IV SCH (20:10)
[2020-08-21] VITALS (41 sets, daily range): BP systolic 97–151; BP diastolic 50–102
[2020-08-21 05:05] LABS: MEAN CORPUSCULAR HEMOGLOBIN 27.1 pg (27.0-33.0); MEAN CORPUSCULAR HGB CONC 31.5 g/dL (32.0-36.0); MEAN CORPUSCULAR VOLUME 86.1 fL (79-99); RED BLOOD CELL COUNT(AUTO) 4.76 MIL/uL (4.50-6.20); RED CELL DISTRIBUTION WIDTH 13.6 % (11.0-15.5); WHITE BLOOD COUNT (AUTO) 6.4 K/uL (4.8-10.8)
[2020-08-21 05:34] LABS: CREATININE 0.6 mg/dL (0.5-1.5); POTASSIUM 4.8 mmol/L (3.5-5.1)
[2020-08-21] MEDS: INSULIN LISPRO 100 UNIT/ML 3ML SQ SCH ×6 (06:00→16:58)
[2020-08-21 06:31] LABS: CRP QUANTITATIVE 183.4 mg/L (0.00-9.0)
[2020-08-21] MEDS: SENNOSIDES 8.6 MG TABLET PO SCH (08:56)
[2020-08-21] MEDS: DOCUSATE SODIUM 100 MG CAP PO SCH (08:56)
[2020-08-21] MEDS: PANTOPRAZOLE 40 MG TAB DR PO SCH (08:56)
[2020-08-21] MEDS: ZINC SULFATE 220 CAPSULE PO SCH (08:56)
[2020-08-21] MEDS: DEXAMETHASONE SOD PHOSPHATE 4 MG/ML 1ML VIAL IV SCH ×2 (08:56→20:35)
[2020-08-21] MEDS: ASCORBIC ACID 500 MG TAB PO SCH ×2 (08:56→20:35)
[2020-08-21] MEDS: ENOXAPARIN SODIUM 60 MG/0.6 ML SQ SCH ×2 (08:57→20:36)
[2020-08-22] VITALS (33 sets, daily range): BP systolic 98–142; BP diastolic 50–83
[2020-08-22] MEDS: INSULIN LISPRO 100 UNIT/ML 3ML SQ SCH ×8 (00:26→17:12)
[2020-08-22 05:42] LABS: HEMATOCRIT 38.3 % (42-54); LYMPHOCYTES % (AUTO) 7.6 % (21.0-51.0); MEAN CORPUSCULAR HEMOGLOBIN 27.7 pg (27.0-33.0); MEAN CORPUSCULAR HGB CONC 32.1 g/dL (32.0-36.0); MEAN CORPUSCULAR VOLUME 86.3 fL (79-99); MONOCYTES % (AUTO) 4.2 % (3.0-13.0); NEUTROPHILS % (AUTO) 87.4 % (40.0-77.0); PLATELET COUNT (AUTO) 196 K/uL (130-400); RED BLOOD CELL COUNT(AUTO) 4.44 MIL/uL (4.50-6.20); RED CELL DISTRIBUTION WIDTH 13.3 % (11.0-15.5); WHITE BLOOD COUNT (AUTO) 8.4 K/uL (4.8-10.8)
[2020-08-22 05:53] LABS: CARBON DIOXIDE 31 mmol/L (21-32); CHLORIDE 101 mmol/L (101-111); CREATININE 0.7 mg/dL (0.5-1.5); GLOMERULAR FILTR. RATE CALC 120 mL/min (>60); GLUCOSE,RANDOM 196 mg/dL (70-105); POTASSIUM 4.5 mmol/L (3.5-5.1); SODIUM SERUM 137 mmol/L (136-145); UREA NITROGEN, BLOOD 16 mg/dL (7-18)
[2020-08-22] MEDS: SENNOSIDES 8.6 MG TABLET PO SCH (08:24)
[2020-08-22] MEDS: ASCORBIC ACID 500 MG TAB PO SCH ×2 (08:24→21:30)
[2020-08-22] MEDS: DOCUSATE SODIUM 100 MG CAP PO SCH (08:24)
[2020-08-22] MEDS: PANTOPRAZOLE 40 MG TAB DR PO SCH (08:24)
[2020-08-22] MEDS: ZINC SULFATE 220 CAPSULE PO SCH (08:24)
[2020-08-22] MEDS: DEXAMETHASONE SOD PHOSPHATE 4 MG/ML 1ML VIAL IV SCH ×2 (08:25→21:30)
[2020-08-22] MEDS: ENOXAPARIN SODIUM 60 MG/0.6 ML SQ SCH (08:26)
[2020-08-22] MEDS: ENOXAPARIN SODIUM 30 MG/0.3 ML SQ SCH (21:30)
[2020-08-22] MEDS: SODIUM CHLORIDE 30 ML DROPS NS SCH (21:30)
[2020-08-22] MEDS ORDERED: PANTOPRAZOLE 40 MG/VIAL ONE (21:52)
[2020-08-23] VITALS (24 sets, daily range): BP systolic 93–144; BP diastolic 54–86
[2020-08-23] MEDS: INSULIN LISPRO 100 UNIT/ML 3ML SQ SCH ×8 (01:02→17:24)
[2020-08-23] MEDS: SODIUM CHLORIDE 30 ML DROPS NS SCH ×6 (01:04→21:35)
[2020-08-23 05:48] LABS: HEMATOCRIT 38.3 % (42-54); LYMPHOCYTES % (AUTO) 7.6 % (21.0-51.0); MEAN CORPUSCULAR HEMOGLOBIN 27.7 pg (27.0-33.0); MEAN CORPUSCULAR HGB CONC 32.4 g/dL (32.0-36.0); MEAN CORPUSCULAR VOLUME 85.5 fL (79-99); MONOCYTES % (AUTO) 5.8 % (3.0-13.0); NEUTROPHILS % (AUTO) 85.8 % (40.0-77.0); PLATELET COUNT (AUTO) 208 K/uL (130-400); RED BLOOD CELL COUNT(AUTO) 4.48 MIL/uL (4.50-6.20); RED CELL DISTRIBUTION WIDTH 13.3 % (11.0-15.5); WHITE BLOOD COUNT (AUTO) 7.8 K/uL (4.8-10.8)
[2020-08-23 06:22] LABS: CARBON DIOXIDE 28 mmol/L (21-32); CHLORIDE 101 mmol/L (101-111); CREATININE 0.7 mg/dL (0.5-1.5); GLOMERULAR FILTR. RATE CALC 120 mL/min (>60); GLUCOSE,RANDOM 160 mg/dL (70-105); POTASSIUM 4.2 mmol/L (3.5-5.1); SODIUM SERUM 138 mmol/L (136-145); UREA NITROGEN, BLOOD 14 mg/dL (7-18)
[2020-08-23] MEDS: SENNOSIDES 8.6 MG TABLET PO SCH (08:09)
[2020-08-23] MEDS: ZINC SULFATE 220 CAPSULE PO SCH (08:09)
[2020-08-23] MEDS: ASCORBIC ACID 500 MG TAB PO SCH ×2 (08:09→21:35)
[2020-08-23] MEDS: DEXAMETHASONE SOD PHOSPHATE 4 MG/ML 1ML VIAL IV SCH ×2 (08:09→21:35)
[2020-08-23] MEDS: DOCUSATE SODIUM 100 MG CAP PO SCH (08:09)
[2020-08-23] MEDS: PANTOPRAZOLE 40 MG TAB DR PO SCH (08:09)
[2020-08-23] MEDS: ENOXAPARIN SODIUM 30 MG/0.3 ML SQ SCH ×2 (08:10→21:35)
[2020-08-23] MEDS: OXYMETAZOLINE HCL SPRAY 15 ML BOTTLE EN SCH ×2 (18:32→21:35)
[2020-08-24] VITALS (18 sets, daily range): BP systolic 108–149; BP diastolic 61–84
[2020-08-24] MEDS: INSULIN LISPRO 100 UNIT/ML 3ML SQ SCH ×10 (00:49→23:27)
[2020-08-24] MEDS: SODIUM CHLORIDE 30 ML DROPS NS SCH ×7 (00:51→23:27)
[2020-08-24 04:57] LABS: BASOPHILS % (AUTO) 0.1 % (0.0-5.0); HEMATOCRIT 38.3 % (42-54); LYMPHOCYTES % (AUTO) 9.1 % (21.0-51.0); MEAN CORPUSCULAR HEMOGLOBIN 27.9 pg (27.0-33.0); MEAN CORPUSCULAR HGB CONC 32.4 g/dL (32.0-36.0); MEAN CORPUSCULAR VOLUME 86.3 fL (79-99); MONOCYTES % (AUTO) 5.8 % (3.0-13.0); PLATELET COUNT (AUTO) 209 K/uL (130-400); RED BLOOD CELL COUNT(AUTO) 4.44 MIL/uL (4.50-6.20); RED CELL DISTRIBUTION WIDTH 13.7 % (11.0-15.5); WHITE BLOOD COUNT (AUTO) 6.7 K/uL (4.8-10.8)
[2020-08-24 05:14] LABS: CREATININE 0.7 mg/dL (0.5-1.5); CRP QUANTITATIVE 12.8 mg/L (0.00-9.0); POTASSIUM 4.6 mmol/L (3.5-5.1)
[2020-08-24] MEDS: OXYMETAZOLINE HCL SPRAY 15 ML BOTTLE EN SCH ×4 (08:13→21:04)
[2020-08-24] MEDS: ASCORBIC ACID 500 MG TAB PO SCH ×2 (08:14→21:04)
[2020-08-24] MEDS: DEXAMETHASONE SOD PHOSPHATE 4 MG/ML 1ML VIAL IV SCH ×2 (08:14→21:04)
[2020-08-24] MEDS: DOCUSATE SODIUM 100 MG CAP PO SCH (08:15)
[2020-08-24] MEDS: ZINC SULFATE 220 CAPSULE PO SCH (08:15)
[2020-08-24] MEDS: SENNOSIDES 8.6 MG TABLET PO SCH (08:15)
[2020-08-24] MEDS: PANTOPRAZOLE 40 MG TAB DR PO SCH (08:15)
[2020-08-24] MEDS: ENOXAPARIN SODIUM 30 MG/0.3 ML SQ SCH ×2 (08:15→21:05)
[2020-08-25] VITALS (20 sets, daily range): BP systolic 101–137; BP diastolic 34–97
[2020-08-25] MEDS: SODIUM CHLORIDE 30 ML DROPS NS SCH ×6 (03:31→23:56)
[2020-08-25] MEDS: INSULIN LISPRO 100 UNIT/ML 3ML SQ SCH ×8 (05:16→23:56)
[2020-08-25 05:49] LABS: BASOPHILS % (AUTO) 0.2 % (0.0-5.0); EOSINOPHILS % (AUTO) 0.2 % (0.0-8.0); HEMATOCRIT 39.3 % (42-54); LYMPHOCYTES % (AUTO) 11.1 % (21.0-51.0); MEAN CORPUSCULAR HEMOGLOBIN 27.5 pg (27.0-33.0); MEAN CORPUSCULAR HGB CONC 31.8 g/dL (32.0-36.0); MEAN CORPUSCULAR VOLUME 86.4 fL (79-99); MONOCYTES % (AUTO) 4.9 % (3.0-13.0); PLATELET COUNT (AUTO) 211 K/uL (130-400); RED BLOOD CELL COUNT(AUTO) 4.55 MIL/uL (4.50-6.20); RED CELL DISTRIBUTION WIDTH 13.9 % (11.0-15.5); WHITE BLOOD COUNT (AUTO) 5.7 K/uL (4.8-10.8)
[2020-08-25 06:00] LABS: CREATININE 0.8 mg/dL (0.5-1.5); POTASSIUM 4.4 mmol/L (3.5-5.1)
[2020-08-25] MEDS: OXYMETAZOLINE HCL SPRAY 15 ML BOTTLE EN SCH ×4 (08:30→20:56)
[2020-08-25] MEDS: ASCORBIC ACID 500 MG TAB PO SCH ×2 (08:31→20:56)
[2020-08-25] MEDS: SENNOSIDES 8.6 MG TABLET PO SCH (08:31)
[2020-08-25] MEDS: DEXAMETHASONE SOD PHOSPHATE 4 MG/ML 1ML VIAL IV SCH ×2 (08:31→20:56)
[2020-08-25] MEDS: PANTOPRAZOLE 40 MG TAB DR PO SCH (08:31)
[2020-08-25] MEDS: ZINC SULFATE 220 CAPSULE PO SCH (08:31)
[2020-08-25] MEDS: ENOXAPARIN SODIUM 30 MG/0.3 ML SQ SCH ×2 (08:32→20:57)
[2020-08-25] MEDS: DOCUSATE SODIUM 100 MG CAP PO SCH (08:33)
[2020-08-26] VITALS (23 sets, daily range): BP systolic 104–139; BP diastolic 45–91
[2020-08-26] MEDS: SODIUM CHLORIDE 30 ML DROPS NS SCH ×5 (03:17→20:08)
[2020-08-26 04:48] LABS: CREATININE 0.8 mg/dL (0.5-1.5); CRP QUANTITATIVE 22.2 mg/L (0.00-9.0); POTASSIUM 4.5 mmol/L (3.5-5.1)
[2020-08-26 05:01] LABS: BASOPHILS % (AUTO) 0.2 % (0.0-5.0); EOSINOPHILS % (AUTO) 0.5 % (0.0-8.0); LYMPHOCYTES % (AUTO) 9.8 % (21.0-51.0); MEAN CORPUSCULAR HEMOGLOBIN 27.5 pg (27.0-33.0); MEAN CORPUSCULAR HGB CONC 31.8 g/dL (32.0-36.0); MEAN CORPUSCULAR VOLUME 86.6 fL (79-99); MONOCYTES % (AUTO) 3.9 % (3.0-13.0); PLATELET COUNT (AUTO) 210 K/uL (130-400); RED BLOOD CELL COUNT(AUTO) 4.62 MIL/uL (4.50-6.20); RED CELL DISTRIBUTION WIDTH 14.2 % (11.0-15.5); WHITE BLOOD COUNT (AUTO) 6.4 K/uL (4.8-10.8)
[2020-08-26] MEDS: INSULIN LISPRO 100 UNIT/ML 3ML SQ SCH ×6 (06:37→17:42)
[2020-08-26] MEDS: OXYMETAZOLINE HCL SPRAY 15 ML BOTTLE EN SCH ×4 (08:51→20:09)
[2020-08-26] MEDS: ZINC SULFATE 220 CAPSULE PO SCH (08:52)
[2020-08-26] MEDS: ENOXAPARIN SODIUM 30 MG/0.3 ML SQ SCH ×2 (08:52→20:08)
[2020-08-26] MEDS: ASCORBIC ACID 500 MG TAB PO SCH ×2 (08:52→20:06)
[2020-08-26] MEDS: DEXAMETHASONE SOD PHOSPHATE 4 MG/ML 1ML VIAL IV SCH ×2 (08:52→20:07)
[2020-08-26] MEDS: DOCUSATE SODIUM 100 MG CAP PO SCH (08:52)
[2020-08-26] MEDS: SENNOSIDES 8.6 MG TABLET PO SCH (08:53)
[2020-08-26] MEDS: PANTOPRAZOLE 40 MG TAB DR PO SCH (08:53)
[2020-08-26] MEDS ORDERED: FENO160T16 PO (13:57)
[2020-08-26] MEDS ORDERED: BENZ-70 PO (13:57)
[2020-08-26] MEDS ORDERED: METF-444 PO (13:57)
[2020-08-26] MEDS ORDERED: GLIP-162 PO (13:57)
[2020-08-26] MEDS ORDERED: ATEN50TA PO (13:57)
[2020-08-26] MEDS ORDERED: LEVO75 PO (13:57)
[2020-08-26] MEDS ORDERED: ATOR20TA65 PO (13:57)
[2020-08-26] MEDS ORDERED: ALBUHFA IH (13:57)
[2020-08-27] VITALS (20 sets, daily range): BP systolic 103–129; BP diastolic 40–71
[2020-08-27] MEDS: INSULIN LISPRO 100 UNIT/ML 3ML SQ SCH ×8 (01:35→17:21)
[2020-08-27] MEDS: SODIUM CHLORIDE 30 ML DROPS NS SCH ×6 (01:36→21:15)
[2020-08-27 04:22] LABS: HEMATOCRIT 38.8 % (42-54); LYMPHOCYTES % (AUTO) 10.1 % (21.0-51.0); MEAN CORPUSCULAR HEMOGLOBIN 27.8 pg (27.0-33.0); MONOCYTES % (AUTO) 1.8 % (3.0-13.0); NEUTROPHILS % (AUTO) 86.3 % (40.0-77.0); PLATELET COUNT (AUTO) 204 K/uL (130-400); RED BLOOD CELL COUNT(AUTO) 4.46 MIL/uL (4.50-6.20); RED CELL DISTRIBUTION WIDTH 14.1 % (11.0-15.5); WHITE BLOOD COUNT (AUTO) 5.6 K/uL (4.8-10.8)
[2020-08-27 04:39] LABS: CREATININE 0.8 mg/dL (0.5-1.5)
[2020-08-27] MEDS: OXYMETAZOLINE HCL SPRAY 15 ML BOTTLE EN SCH ×4 (08:27→21:15)
[2020-08-27] MEDS: PANTOPRAZOLE 40 MG TAB DR PO SCH (08:28)
[2020-08-27] MEDS: SENNOSIDES 8.6 MG TABLET PO SCH (08:28)
[2020-08-27] MEDS: DOCUSATE SODIUM 100 MG CAP PO SCH (08:28)
[2020-08-27] MEDS: DEXAMETHASONE SOD PHOSPHATE 4 MG/ML 1ML VIAL IV SCH ×2 (08:28→21:15)
[2020-08-27] MEDS: ASCORBIC ACID 500 MG TAB PO SCH ×2 (08:28→21:15)
[2020-08-27] MEDS: ZINC SULFATE 220 CAPSULE PO SCH (08:28)
[2020-08-27] MEDS: ENOXAPARIN SODIUM 30 MG/0.3 ML SQ SCH ×2 (08:30→21:15)
[2020-08-28] VITALS (24 sets, daily range): BP systolic 107–133; BP diastolic 58–82
[2020-08-28] MEDS: INSULIN LISPRO 100 UNIT/ML 3ML SQ SCH ×8 (00:50→17:52)
[2020-08-28] MEDS: SODIUM CHLORIDE 30 ML DROPS NS SCH ×6 (00:51→21:30)
[2020-08-28 04:36] LABS: BASOPHILS % (AUTO) 0.2 % (0.0-5.0); HEMATOCRIT 36.7 % (42-54); LYMPHOCYTES % (AUTO) 9.7 % (21.0-51.0); MEAN CORPUSCULAR HGB CONC 32.4 g/dL (32.0-36.0); MEAN CORPUSCULAR VOLUME 86.4 fL (79-99); MONOCYTES % (AUTO) 3.7 % (3.0-13.0); NEUTROPHILS % (AUTO) 84.9 % (40.0-77.0); PLATELET COUNT (AUTO) 208 K/uL (130-400); RED BLOOD CELL COUNT(AUTO) 4.25 MIL/uL (4.50-6.20); RED CELL DISTRIBUTION WIDTH 14.2 % (11.0-15.5); WHITE BLOOD COUNT (AUTO) 6.5 K/uL (4.8-10.8)
[2020-08-28 04:56] LABS: ALBUMIN 2.3 g/dL (3.5-5.0); BILIRUBIN,TOTAL 0.2 mg/dL (0.2-1.0); CREATININE 0.7 mg/dL (0.5-1.5); CRP QUANTITATIVE 8.8 mg/L (0.00-9.0); POTASSIUM 4.2 mmol/L (3.5-5.1); TOTAL PROTEIN, SERUM 5.8 g/dL (6.0-8.3)
[2020-08-28] MEDS: ZINC SULFATE 220 CAPSULE PO SCH (09:28)
[2020-08-28] MEDS: SENNOSIDES 8.6 MG TABLET PO SCH (09:29)
[2020-08-28] MEDS: DOCUSATE SODIUM 100 MG CAP PO SCH (09:29)
[2020-08-28] MEDS: PANTOPRAZOLE 40 MG TAB DR PO SCH (09:29)
[2020-08-28] MEDS: ASCORBIC ACID 500 MG TAB PO SCH ×2 (09:29→21:29)
[2020-08-28] MEDS: ENOXAPARIN SODIUM 30 MG/0.3 ML SQ SCH ×2 (09:30→21:29)
[2020-08-28] MEDS: DEXAMETHASONE SOD PHOSPHATE 4 MG/ML 1ML VIAL IV SCH (09:30)
[2020-08-28] MEDS: OXYMETAZOLINE HCL SPRAY 15 ML BOTTLE EN SCH ×4 (09:31→21:30)
[2020-08-29] VITALS (21 sets, daily range): BP systolic 88–134; BP diastolic 51–90
[2020-08-29] MEDS: SODIUM CHLORIDE 30 ML DROPS NS SCH ×6 (03:22→22:11)
[2020-08-29] MEDS: INSULIN LISPRO 100 UNIT/ML 3ML SQ SCH ×8 (03:33→17:18)
[2020-08-29 05:56] LABS: EOSINOPHILS % (AUTO) 0.5 % (0.0-8.0); HEMATOCRIT 37.3 % (42-54); MEAN CORPUSCULAR HEMOGLOBIN 27.4 pg (27.0-33.0); MEAN CORPUSCULAR HGB CONC 31.6 g/dL (32.0-36.0); MEAN CORPUSCULAR VOLUME 86.7 fL (79-99); MONOCYTES % (AUTO) 4.5 % (3.0-13.0); NEUTROPHILS % (AUTO) 78.3 % (40.0-77.0); PLATELET COUNT (AUTO) 198 K/uL (130-400); RED CELL DISTRIBUTION WIDTH 14.2 % (11.0-15.5); WHITE BLOOD COUNT (AUTO) 6.1 K/uL (4.8-10.8)
[2020-08-29 06:24] LABS: ALBUMIN 2.3 g/dL (3.5-5.0); BILIRUBIN,TOTAL 0.2 mg/dL (0.2-1.0); CREATININE 0.7 mg/dL (0.5-1.5); CRP QUANTITATIVE 7.2 mg/L (0.00-9.0); POTASSIUM 3.8 mmol/L (3.5-5.1); TOTAL PROTEIN, SERUM 5.6 g/dL (6.0-8.3)
[2020-08-29] MEDS: OXYMETAZOLINE HCL SPRAY 15 ML BOTTLE EN SCH ×4 (09:37→22:11)
[2020-08-29] MEDS: DOCUSATE SODIUM 100 MG CAP PO SCH (09:38)
[2020-08-29] MEDS: DEXAMETHASONE SOD PHOSPHATE 4 MG/ML 1ML VIAL IV SCH (09:38)
[2020-08-29] MEDS: PANTOPRAZOLE 40 MG TAB DR PO SCH (09:38)
[2020-08-29] MEDS: SENNOSIDES 8.6 MG TABLET PO SCH (09:38)
[2020-08-29] MEDS: ASCORBIC ACID 500 MG TAB PO SCH ×2 (09:38→22:11)
[2020-08-29] MEDS: ZINC SULFATE 220 CAPSULE PO SCH (09:38)
[2020-08-29] MEDS: ENOXAPARIN SODIUM 30 MG/0.3 ML SQ SCH ×2 (09:39→22:11)
[2020-08-30] VITALS (26 sets, daily range): BP systolic 103–137; BP diastolic 53–78
[2020-08-30] MEDS: SODIUM CHLORIDE 30 ML DROPS NS SCH ×6 (03:53→20:57)
[2020-08-30] MEDS: INSULIN LISPRO 100 UNIT/ML 3ML SQ SCH ×8 (03:54→17:28)
[2020-08-30 04:14] LABS: ABG BASE EXCESS 5.1 mmol/L (-2.0-3.0); ABG HCO3 29.8 mmol/L (21.0-28.0); ABG PCO2 44 mmHg (35-48)
[2020-08-30] MEDS: ZINC SULFATE 220 CAPSULE PO SCH (09:30)
[2020-08-30] MEDS: SENNOSIDES 8.6 MG TABLET PO SCH (09:30)
[2020-08-30] MEDS: ASCORBIC ACID 500 MG TAB PO SCH ×2 (09:30→20:56)
[2020-08-30] MEDS: DOCUSATE SODIUM 100 MG CAP PO SCH (09:31)
[2020-08-30] MEDS: DEXAMETHASONE SOD PHOSPHATE 4 MG/ML 1ML VIAL IV SCH (09:31)
[2020-08-30] MEDS: PANTOPRAZOLE 40 MG TAB DR PO SCH (09:31)
[2020-08-30] MEDS: OXYMETAZOLINE HCL SPRAY 15 ML BOTTLE EN SCH ×4 (09:32→20:57)
[2020-08-30] MEDS: ENOXAPARIN SODIUM 30 MG/0.3 ML SQ SCH ×2 (09:33→20:57)
[2020-08-31] VITALS (21 sets, daily range): BP systolic 73–137; BP diastolic 51–80
[2020-08-31] MEDS: INSULIN LISPRO 100 UNIT/ML 3ML SQ SCH ×10 (00:51→23:58)
[2020-08-31] MEDS: SODIUM CHLORIDE 30 ML DROPS NS SCH ×7 (00:52→23:57)
[2020-08-31 05:31] LABS: EOSINOPHILS % (AUTO) 0.9 % (0.0-8.0); HEMATOCRIT 36.9 % (42-54); MEAN CORPUSCULAR HEMOGLOBIN 27.8 pg (27.0-33.0); MEAN CORPUSCULAR HGB CONC 32.2 g/dL (32.0-36.0); MEAN CORPUSCULAR VOLUME 86.2 fL (79-99); MONOCYTES % (AUTO) 4.6 % (3.0-13.0); NEUTROPHILS % (AUTO) 70.7 % (40.0-77.0); PLATELET COUNT (AUTO) 161 K/uL (130-400); RED BLOOD CELL COUNT(AUTO) 4.28 MIL/uL (4.50-6.20); RED CELL DISTRIBUTION WIDTH 14.4 % (11.0-15.5); WHITE BLOOD COUNT (AUTO) 5.6 K/uL (4.8-10.8)
[2020-08-31 05:54] LABS: ALBUMIN 2.4 g/dL (3.5-5.0); BILIRUBIN,TOTAL 0.2 mg/dL (0.2-1.0); CREATININE 0.6 mg/dL (0.5-1.5); POTASSIUM 3.8 mmol/L (3.5-5.1); TOTAL PROTEIN, SERUM 5.9 g/dL (6.0-8.3)
[2020-08-31] MEDS: SENNOSIDES 8.6 MG TABLET PO SCH (08:05)
[2020-08-31] MEDS: ZINC SULFATE 220 CAPSULE PO SCH (08:05)
[2020-08-31] MEDS: PANTOPRAZOLE 40 MG TAB DR PO SCH (08:05)
[2020-08-31] MEDS: ASCORBIC ACID 500 MG TAB PO SCH ×2 (08:05→21:27)
[2020-08-31] MEDS: DOCUSATE SODIUM 100 MG CAP PO SCH (08:06)
[2020-08-31] MEDS: DEXAMETHASONE SOD PHOSPHATE 4 MG/ML 1ML VIAL IV SCH (08:06)
[2020-08-31] MEDS: ENOXAPARIN SODIUM 30 MG/0.3 ML SQ SCH ×2 (08:07→21:28)
[2020-08-31] MEDS: OXYMETAZOLINE HCL SPRAY 15 ML BOTTLE EN SCH ×4 (08:12→21:41)
[2020-08-31] MEDS: KCL 20 MEQ ERTAB PO PRN ×2 (10:01→11:59)
[2020-09-01] VITALS (12 sets, daily range): BP systolic 103–142; BP diastolic 39–79
[2020-09-01 04:33] LABS: BASOPHILS % (AUTO) 0.2 % (0.0-5.0); EOSINOPHILS % (AUTO) 0.5 % (0.0-8.0); HEMATOCRIT 36.4 % (42-54); LYMPHOCYTES % (AUTO) 17.3 % (21.0-51.0); MEAN CORPUSCULAR HEMOGLOBIN 27.7 pg (27.0-33.0); MEAN CORPUSCULAR HGB CONC 32.1 g/dL (32.0-36.0); MEAN CORPUSCULAR VOLUME 86.3 fL (79-99); MONOCYTES % (AUTO) 4.4 % (3.0-13.0); NEUTROPHILS % (AUTO) 74.5 % (40.0-77.0); PLATELET COUNT (AUTO) 166 K/uL (130-400); RED BLOOD CELL COUNT(AUTO) 4.22 MIL/uL (4.50-6.20); RED CELL DISTRIBUTION WIDTH 14.5 % (11.0-15.5); WHITE BLOOD COUNT (AUTO) 5.5 K/uL (4.8-10.8)
[2020-09-01 05:00] LABS: ALBUMIN 2.4 g/dL (3.5-5.0); BILIRUBIN,TOTAL 0.2 mg/dL (0.2-1.0); CREATININE 0.7 mg/dL (0.5-1.5); CRP QUANTITATIVE 11.1 mg/L (0.00-9.0); POTASSIUM 3.9 mmol/L (3.5-5.1); TOTAL PROTEIN, SERUM 5.9 g/dL (6.0-8.3)
[2020-09-01] MEDS: SODIUM CHLORIDE 30 ML DROPS NS SCH ×4 (05:52→17:10)
[2020-09-01] MEDS: INSULIN LISPRO 100 UNIT/ML 3ML SQ SCH ×6 (06:00→17:08)
[2020-09-01] MEDS: OXYMETAZOLINE HCL SPRAY 15 ML BOTTLE EN SCH ×4 (10:15→21:00)
[2020-09-01] MEDS: DOCUSATE SODIUM 100 MG CAP PO SCH (10:16)
[2020-09-01] MEDS: PANTOPRAZOLE 40 MG TAB DR PO SCH (10:16)
[2020-09-01] MEDS: DEXAMETHASONE SOD PHOSPHATE 4 MG/ML 1ML VIAL IV SCH (10:16)
[2020-09-01] MEDS: SENNOSIDES 8.6 MG TABLET PO SCH (10:16)
[2020-09-01] MEDS: ASCORBIC ACID 500 MG TAB PO SCH (10:17)
[2020-09-01] MEDS: ZINC SULFATE 220 CAPSULE PO SCH (10:17)
[2020-09-01] MEDS: ENOXAPARIN SODIUM 30 MG/0.3 ML SQ SCH (10:18)
[2020-09-02] MEDS: ASCORBIC ACID 500 MG TAB PO SCH ×2 (00:41→09:19)
[2020-09-02] MEDS: ENOXAPARIN SODIUM 30 MG/0.3 ML SQ SCH ×2 (00:42→09:18)
[2020-09-02] MEDS: INSULIN LISPRO 100 UNIT/ML 3ML SQ SCH ×8 (00:44→17:20)
[2020-09-02 00:54] VITALS: BP 119/65
[2020-09-02 04:38] LABS: BASOPHILS % (AUTO) 0.4 % (0.0-5.0); EOSINOPHILS % (AUTO) 0.7 % (0.0-8.0); HEMATOCRIT 37.5 % (42-54); LYMPHOCYTES % (AUTO) 18.6 % (21.0-51.0); MEAN CORPUSCULAR HEMOGLOBIN 27.4 pg (27.0-33.0); MEAN CORPUSCULAR HGB CONC 31.5 g/dL (32.0-36.0); MONOCYTES % (AUTO) 5.5 % (3.0-13.0); NEUTROPHILS % (AUTO) 70.7 % (40.0-77.0); PLATELET COUNT (AUTO) 158 K/uL (130-400); RED BLOOD CELL COUNT(AUTO) 4.31 MIL/uL (4.50-6.20); RED CELL DISTRIBUTION WIDTH 14.3 % (11.0-15.5); WHITE BLOOD COUNT (AUTO) 5.4 K/uL (4.8-10.8)
[2020-09-02 04:45] VITALS: BP 116/68
[2020-09-02 04:48] LABS: CREATININE 0.7 mg/dL (0.5-1.5); CRP QUANTITATIVE 10.2 mg/L (0.00-9.0); POTASSIUM 3.9 mmol/L (3.5-5.1)
[2020-09-02 08:00] VITALS: BP 120/73
[2020-09-02] MEDS: DEXAMETHASONE SOD PHOSPHATE 4 MG/ML 1ML VIAL IV SCH (09:17)
[2020-09-02] MEDS: PANTOPRAZOLE 40 MG TAB DR PO SCH (09:18)
[2020-09-02] MEDS: ZINC SULFATE 220 CAPSULE PO SCH (09:18)
[2020-09-02] MEDS: DOCUSATE SODIUM 100 MG CAP PO SCH (09:18)
[2020-09-02] MEDS: SENNOSIDES 8.6 MG TABLET PO SCH (09:19)
[2020-09-02] MEDS: OXYMETAZOLINE HCL SPRAY 15 ML BOTTLE EN SCH ×3 (09:19→17:25)
[2020-09-02 11:54] VITALS: BP 111/67
[2020-09-02 15:43] VITALS: BP 104/65
== END 2020-09-02 19:50 | DRG 177 ==
LOC: EDH 15:17 → EDHIP 15:18 → 3DH 20:06 → EDHIP 20:54 → 2CV 08-06 23:35 → 2CH 08-07 18:07 → 2AH 09-01 07:54
PROVIDERS: ADMIT Family Medicine; ATTEND Family Medicine
PROC: XW13325 Transfusion of Convalescent Plasma (Nonautologous) into Peripheral Vein, Percutaneous Approach, New Technology Group 5 (ICD-10-PCS; 2020-08-04)
PROC: 5A09357 Assistance with Respiratory Ventilation, Less than 24 Consecutive Hours, Continuous Positive Airway Pressure (ICD-10-PCS; 2020-08-07)
PROC: 5A0935A Assistance with Respiratory Ventilation, Less than 24 Consecutive Hours, High Flow/Velocity Cannula (ICD-10-PCS; 2020-08-07)
PROC: XW033E5 Introduction of Remdesivir Anti-infective into Peripheral Vein, Percutaneous Approach, New Technology Group 5 (ICD-10-PCS; principal; 2020-08-08)
PROC: 5A09357 Assistance with Respiratory Ventilation, Less than 24 Consecutive Hours, Continuous Positive Airway Pressure (ICD-10-PCS; 2020-08-08)
PROC: 5A0935A Assistance with Respiratory Ventilation, Less than 24 Consecutive Hours, High Flow/Velocity Cannula (ICD-10-PCS; 2020-08-08)
PROC: 5A09457 Assistance with Respiratory Ventilation, 24-96 Consecutive Hours, Continuous Positive Airway Pressure (ICD-10-PCS; 2020-08-09)
PROC: 5A0935A Assistance with Respiratory Ventilation, Less than 24 Consecutive Hours, High Flow/Velocity Cannula (ICD-10-PCS; 2020-08-09)
PROC: 5A09457 Assistance with Respiratory Ventilation, 24-96 Consecutive Hours, Continuous Positive Airway Pressure (ICD-10-PCS; 2020-08-11)
PROC: 5A0935A Assistance with Respiratory Ventilation, Less than 24 Consecutive Hours, High Flow/Velocity Cannula (ICD-10-PCS; 2020-08-11)
PROC: 5A09357 Assistance with Respiratory Ventilation, Less than 24 Consecutive Hours, Continuous Positive Airway Pressure (ICD-10-PCS; 2020-08-15)
PROC: 5A0935A Assistance with Respiratory Ventilation, Less than 24 Consecutive Hours, High Flow/Velocity Cannula (ICD-10-PCS; 2020-08-15)
PROC: 5A0935A Assistance with Respiratory Ventilation, Less than 24 Consecutive Hours, High Flow/Velocity Cannula (ICD-10-PCS; 2020-08-16)
PROC: 5A0935A Assistance with Respiratory Ventilation, Less than 24 Consecutive Hours, High Flow/Velocity Cannula (ICD-10-PCS; 2020-08-17)
PROC: 5A0935A Assistance with Respiratory Ventilation, Less than 24 Consecutive Hours, High Flow/Velocity Cannula (ICD-10-PCS; 2020-08-18)
PROC: 5A0935A Assistance with Respiratory Ventilation, Less than 24 Consecutive Hours, High Flow/Velocity Cannula (ICD-10-PCS; 2020-08-19)
PROC: 5A0935A Assistance with Respiratory Ventilation, Less than 24 Consecutive Hours, High Flow/Velocity Cannula (ICD-10-PCS; 2020-08-20)
PROC: 5A0935A Assistance with Respiratory Ventilation, Less than 24 Consecutive Hours, High Flow/Velocity Cannula (ICD-10-PCS; 2020-08-21)
PROC: 5A0955A Assistance with Respiratory Ventilation, Greater than 96 Consecutive Hours, High Flow/Velocity Cannula (ICD-10-PCS; 2020-08-22)
DX: U07.1 COVID-19 (principal); J80 Acute respiratory distress syndrome; J12.82 Pneumonia due to coronavirus disease 2019; E87.1 Hypo-osmolality and hyponatremia; E44.0 Moderate protein-calorie malnutrition; N17.9 Acute kidney failure, unspecified; D68.59 Other primary thrombophilia; K59.04 Chronic idiopathic constipation; R04.0 Epistaxis; T38.0X5A Adverse effect of glucocorticoids and synthetic analogues, initial encounter; D72.810 Lymphocytopenia; R74.8 Abnormal levels of other serum enzymes; R74.01 Elevation of levels of liver transaminase levels; E11.65 Type 2 diabetes mellitus with hyperglycemia; E78.5 Hyperlipidemia, unspecified; E78.00 Pure hypercholesterolemia, unspecified; E66.9 Obesity, unspecified; I12.9 Hypertensive chronic kidney disease with stage 1 through stage 4 chronic kidney disease, or unspecified chronic kidney disease; E11.22 Type 2 diabetes mellitus with diabetic chronic kidney disease; E87.6 Hypokalemia; B97.89 Other viral agents as the cause of diseases classified elsewhere; N18.9 Chronic kidney disease, unspecified; Z91.19 Patient's noncompliance with other medical treatment and regimen; Z68.36 Body mass index [BMI] 36.0-36.9, adult; Y92.89 Other specified places as the place of occurrence of the external cause
CPT/HCPCS: 36415; 36600; 71045; 71046; 80048; 80053; 80190; 82435; 82728; 82803; 82947; 82948; 83036; 83605; 83615; 83735; 83880; 84100; 84132; 84145; 84295; 84443; 84484; 85018; 85025; 85027; 85378; 86140; 86900; 86901; 86927; 87040; 87426; 93005; 93306; 93970; 94660; C9113; G0378; J0360; J0696; J1100; J1650; J1815; J1940; J2543; J3490; J7030; J7040; J7050; P9047; U0003